=== PATIENT | female | born 1995 | race Caucasian/White ===

== ENCOUNTER 2020-05-15 09:04 | Outpatient (CLI) | payer OTHER ==
--- NOTE | 2020-05-15 09:50 | CT ---
Neck CT with IV contrast: 05/15/2020 COMPARISON: None HISTORY: Palpable nodule left side of neck in the clavicular region TECHNIQUE: Axial CT imaging is obtained at 3 mm intervals from the skull base through the lung apices with IV contrast. Coronal and sagittal reformatted imaging obtained. FINDINGS: The imaged lung apices appear unremarkable. The imaged paranasal sinuses and mastoid air cells are well-aerated. The imaged brain parenchyma appears grossly unremarkable. The retroantral and parapharyngeal fat appears unremarkable bilaterally. The parotid glands, the submandibular glands, the hyoid bone, the cricoid cartilage, the thyroid cart ilage, the level of the glottis, the thyroid gland, and the palantine tonsils appear grossly unremarkable. An area of palpable concern is marked in the supraclavicular region on the left. Deep to the marker i s a oval solid nodule just superior to the midshaft of the left clavicle, likely representing a lymph node which measures 7 mm x 9 mm x 8 mm. No additional prominent lymph nodes are seen within the neck. The vascular structures appear patent. No acute osseous abnormality. 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 IMPRESSION: Soft tissue nodule in the area of palpable concern suggesting a mildly prominent left sup raclavicular lymph node measuring less than a centimeter in size.
[2020-05-15] MEDS ORDERED: Iopamidol 370 76% 100 ML VIAL ONE (13:50)
== END 2020-05-15 09:05 | disposition home or self-care (01) ==
LOC: BICCT 09:04
PROVIDERS: ATTEND Physician Assistant
DX: R59.0 Localized enlarged lymph nodes (principal); R22.1 Localized swelling, mass and lump, neck
CPT/HCPCS: 70491; Q9967